=== PATIENT | male | born 1990 | race Caucasian/White ===

== ENCOUNTER → 2019-08-28 12:19 | Outpatient (CLI) | payer OTHER, SELFPAY ==
--- NOTE | 2019-08-28 12:44 | XR_ITS ---
PROCEDURE: XR CHEST PORTABLE CLINICAL HISTORY: COVID TESTING Cough and congestion COMPARISON: No exams were available for comparison FINDINGS: The cardiomediastinal silhouette and pulmonary vascularity are within normal limits. The lungs are clear without infiltrates, suspicious nodules, or pleural effusions. No acute bony abnormalities. IMPRESSION: No acute findings. Dictated by: Jase Zamora MD 08/28/2019 13:38 Electronically signed by Jase Zamora MD in [facility] 08/28/2019 13:38
[2019-08-28 13:43] LABS: Adenovirus,PCR Not Detected (NotDetected); Bordetella Pertussis Not Detected (NotDetected); Chlamydophila Pneumoniae, PCR Not Detected (NotDetected); Coronavirus 229E Not Detected (NotDetected); Coronavirus NL63 Not Detected (NotDetected); Coronavirus OC43 Not Detected (NotDetected); Coronovirus HKU1,PCR Not Detected (NotDetected); Human Metapneumovirus Not Detected (NotDetected); Influenza A, PCR Not Detected (NotDetected); Influenza AH1, 2009 Not Detected (NotDetected); Influenza AH1, PCR Not Detected (NotDetected); Influenza AH3,PCR Not Detected (NotDetected); Influenza B, PCR Not Detected (NotDetected); Mycoplasma Pneumoniae, PCR Not Detected (NotDetected); Parainfluenza 1, PCR Not Detected (NotDetected); Parainfluenza 2, PCR Not Detected (NotDetected); Parainfluenza 3, PCR Not Detected (NotDetected); Parainfluenza 4, PCR Not Detected (NotDetected); Respiratory Syncytial Virus Not Detected (NotDetected); Rhinovirus/Enterovirus Not Detected (NotDetected)
[2019-08-28 14:27] LABS: Basophils # 0.1 K/mm3 (0-0.2); Basophils % 0.7 % (0.1-2.0); Eosinophils # 0.3 K/mm3 (0.0-0.4); Eosinophils % 3.9 % (0.1-12.0); Hematocrit 47.6 % (42.0-52.0); Hemoglobin 16.4 g/dL (14.1-18.0); Lymphocytes # 2.4 K/mm3 (0.7-4.5); Lymphocytes % 27.9 % (10-50); Mean Corpuscular HGB Conc 34.5 g/dL (31.8-35.4); Mean Corpuscular Hemoglobin 32.3 pg (27.0-31.2); Mean Corpuscular Volume 93.6 fl (80-94); Mean Platelet Volume 7.5 fl (7.4-10.4); Monocytes # 0.6 K/mm3 (0.1-1.0); Neutrophils # 5.1 K/mm3 (1.8-7.8); Neutrophils % 60.4 % (37.0-80.0); Platelet Count 245 K/mm3 (142-424); Red Blood Count 5.09 M/mm3 (4.60-6.20); Red Cell Distribution Width 12.9 % (11.5-17.5); White Blood Count 8.5 K/mm3 (4.8-10.8)
[2019-08-28 15:17] LABS: Strep Scrn Group A (Rapid) Negative (Negative)
[2019-08-28 15:26] LABS: Coronavirus 19 IgG Antibody Negative (Negative); Coronavirus 19 IgM Antibody Negative (Negative)
[2019-08-29 14:41] LABS: Covid-19 Nasal PCR Sendout Lex NOT DETECTED
== END ==
PROVIDERS: PCP Family Medicine; Visit Provider Family Medicine
DX: Z01.818 Encounter for other preprocedural examination (principal)
CPT/HCPCS: 36415; 71045; 85025; 86328; 87430; 87486; 87581; 87633; 87798; U0004

== ENCOUNTER → 2020-01-21 10:55 | Outpatient (CLI) | payer BC, SELFPAY ==
--- NOTE | 2020-01-21 11:01 | US_ITS ---
PROCEDURE: US TESTICULAR CLINICAL INDICATION: LT EPIDIDYMITIS Pain COMPARISON: No exams were available for comparison FINDINGS: The right testicle is 4 x 2.3 x 3 cm. Left testicle is 4 x 2 x 4 cm. There is bilateral testicular blood flow. No mass or other significant anomaly. The epididymi have an unremarkable appearance. Imaging was performed along the proximal penile region showing no obvious abnormality. IMPRESSION: Unremarkable testicular ultrasound. Dictated by: Jase Zamora MD 01/21/2020 12:27 Jase Zamora MD in [facility] 01/21/2020 12:27
== END ==
PROVIDERS: PCP Family Medicine; Visit Provider Nurse Practitioner
DX: N45.1 Epididymitis (principal)
CPT/HCPCS: 76870

== ENCOUNTER → 2021-11-01 06:23 | Outpatient (CLI) | payer SELFPAY ==
[2021-11-01 18:33] LABS: Adenovirus,PCR Not Detected (NotDetected); Bordetella Pertussis Not Detected (NotDetected); Chlamydophila Pneumoniae, PCR Not Detected (NotDetected); Coronavirus 229E Not Detected (NotDetected); Coronavirus NL63 Not Detected (NotDetected); Coronavirus OC43 Not Detected (NotDetected); Coronovirus HKU1,PCR Not Detected (NotDetected); Human Metapneumovirus Not Detected (NotDetected); Influenza A, PCR Not Detected (NotDetected); Influenza AH1, 2009 Not Detected (NotDetected); Influenza AH1, PCR Not Detected (NotDetected); Influenza AH3,PCR Not Detected (NotDetected); Influenza B, PCR Not Detected (NotDetected); Mycoplasma Pneumoniae, PCR Not Detected (NotDetected); Parainfluenza 1, PCR Not Detected (NotDetected); Parainfluenza 2, PCR Not Detected (NotDetected); Parainfluenza 3, PCR Not Detected (NotDetected); Parainfluenza 4, PCR Not Detected (NotDetected); Respiratory Syncytial Virus Not Detected (NotDetected); Rhinovirus/Enterovirus Not Detected (NotDetected)
[2021-11-01 18:49] LABS: Basophils % 0.5 % (0.1-2.0); Eosinophils % 0.4 % (0.1-12.0); Hematocrit 52.7 % (42.0-52.0); Lymphocytes # 0.6 K/mm3 (0.7-4.5); Lymphocytes % 11.2 % (10-50); Mean Corpuscular HGB Conc 32.3 g/dL (31.8-35.4); Mean Corpuscular Hemoglobin 32.3 pg (27.0-31.2); Mean Corpuscular Volume 99.9 fl (80-94); Mean Platelet Volume 8.1 fl (7.4-10.4); Monocytes # 0.7 K/mm3 (0.1-1.0); Monocytes % 13.7 % (1.7-9.3); Neutrophils % 74.1 % (37.0-80.0); Platelet Count 227 K/mm3 (142-424); Red Blood Count 5.27 M/mm3 (4.60-6.20); Red Cell Distribution Width 13.1 % (11.5-17.5); White Blood Count 5.4 K/mm3 (4.8-10.8)
[2021-11-02 02:38] LABS: Coronavirus 19, PCR Detected (NotDetected)
== END ==
PROVIDERS: PCP Nurse Practitioner; Visit Provider Nurse Practitioner
DX: U07.1 COVID-19 (principal); R06.2 Wheezing; R51.9 Headache, unspecified; J02.9 Acute pharyngitis, unspecified; J06.9 Acute upper respiratory infection, unspecified
CPT/HCPCS: 85025; 87581; 87632; 87798; C9803; U0003; U0005

== ENCOUNTER → 2022-03-28 15:38 | Outpatient (CLI) | payer OTHER, SELFPAY ==
[2022-03-28 20:13] LABS: Alanine Aminotransferase 42 U/L (12-78); Albumin Level 4.6 g/dl (3.5-5.0); Albumin/Globulin Ratio 1.7 (1.1-1.8); Alkaline Phosphatase 82 U/L (38-126); Anion Gap 13.2 mEq/L (5-15); Aspartate Amino Transferase 35 U/L (17-59); Bilirubin,Total 0.8 mg/dl (0.2-1.3); Blood Urea Nitrogen 9 mg/dl (9-20); Calcium 9.1 mg/dl (8.4-10.2); Carbon Dioxide 30 mmol/L (22.0-30.0); Chloride 102 mmol/L (98-107); Chol/HDL Ratio 1.8 (1-3.5); Cholesterol 131 mg/dl (140-200); Estimated Glomerular Filt Rate 88 ml/min (>60); GFR (African American) 106 ML/MIN (>60); Globulin 2.7 g/dL (1.3-3.2); Glucose 85 mg/dl (74-100); HDL Cholesterol 72 mg/dl (40-60); Potassium 4.2 mmoL/L (3.5-5.1); Sodium 141 mmol/L (136-145); Total Protein,Serum 7.3 g/dl (6.3-8.2); Triglycerides 81 mg/dl (30-150); VLDL Cholesterol 16 mg/dL (0-40)
[2022-03-28 20:23] LABS: C-Reactive Protein 1.7 mg/L (0-4); Direct LDL Cholesterol 40.99 mg/dL (100-129)
[2022-03-28 20:25] LABS: 25-OH Vitamin D, Total 36.1 ng/mL (30-100)
[2022-03-28 20:36] LABS: Hemoglobin A1C 5.4 % (4.0-6.0)
[2022-03-28 20:53] LABS: Erythrocyte Sedimentation Rate 3 mm/hr (0-15)
[2022-03-28 20:56] LABS: Basophils # 0.1 K/mm3 (0-0.2); Basophils % 0.8 % (0.1-2.0); Eosinophils # 0.2 K/mm3 (0.0-0.4); Eosinophils % 3.7 % (0.1-12.0); Hemoglobin 16.5 g/dL (14.1-18.0); Lymphocytes % 30.6 % (10-50); Mean Corpuscular HGB Conc 33.7 g/dL (31.8-35.4); Mean Corpuscular Volume 91.9 fl (80-94); Mean Platelet Volume 8.9 fl (7.4-10.4); Monocytes # 0.6 K/mm3 (0.1-1.0); Monocytes % 8.6 % (1.7-9.3); Neutrophils # 3.7 K/mm3 (1.8-7.8); Neutrophils % 56.4 % (37.0-80.0); Platelet Count 367 K/mm3 (142-424); Red Blood Count 5.33 M/mm3 (4.60-6.20); Red Cell Distribution Width 12.8 % (11.5-17.5); White Blood Count 6.6 K/mm3 (4.8-10.8)
[2022-03-28 21:01] LABS: Vitamin B12 587 pg/mL (239-931)
[2022-03-30 14:32] LABS: HIV Screen 4th Generation wRfx Non Reactive (Non Reactive)
[2022-04-05 23:11] LABS: Hep A Ab, IgM NEGATIVE; Hepatitis B Core Antibody IgM NEGATIVE; Hepatitis B Surface Antigen NEGATIVE; Hepatitis C Antibody >11.0
== END ==
LOC: LAB.DROPOF 03-29 06:28
PROVIDERS: PCP Nurse Practitioner; Visit Provider Nurse Practitioner
DX: F19.11 Other psychoactive substance abuse, in remission (principal); R53.83 Other fatigue; Z80.7 Family history of other malignant neoplasms of lymphoid, hematopoietic and related tissues; Z86.19 Personal history of other infectious and parasitic diseases
CPT/HCPCS: 80053; 80061; 80074; 82306; 82607; 83036; 84443; 85025; 85651; 86140; 86703; G0432

== ENCOUNTER → 2022-03-29 16:50 | Outpatient (CLI) | payer OTHER, SELFPAY ==
--- NOTE | 2022-03-29 17:10 | XR_ITS ---
PROCEDURE INFORMATION: Exam: XR Chest Exam date and time: 03/29/2022 5:11 PM Age: 32 years old Clinical indication: Cough and shortness of breath; Additional info: Fatigue, family history non-hodgkin's lymphoma, patient stated he has felt bad for awhile, and he is a smoker, SOA TECHNIQUE: Imaging protocol: Radiologic exam of the chest. Views: 2 views. COMPARISON: CR XR CHEST PORTABLE 08/28/2019 1:03 PM FINDINGS: Lungs: No evidence of pneumonia or interstitial edema. Pleural spaces: Unremarkable. No pleural effusion. No pneumothorax. Heart/Mediastinum: Unremarkable. No cardiomegaly. Bones/joints: Unremarkable. IMPRESSION: No evidence of pneumonia or interstitial edema.
== END ==
LOC: RAD 16:51
PROVIDERS: PCP Nurse Practitioner; Visit Provider Nurse Practitioner
DX: R53.83 Other fatigue (principal); Z80.7 Family history of other malignant neoplasms of lymphoid, hematopoietic and related tissues
CPT/HCPCS: 71046

== ENCOUNTER → 2023-03-06 14:44 | Outpatient (CLI) | payer BC, SELFPAY ==
[2023-03-06 15:33] LABS: Basophils # 0.1 K/mm3 (0-0.2); Basophils % 1.4 % (0.1-2.0); Eosinophils # 0.3 K/mm3 (0.0-0.4); Eosinophils % 5.3 % (0.1-12.0); Hematocrit 44.9 % (42.0-52.0); Hemoglobin 16.1 g/dL (14.1-18.0); Lymphocytes # 2.1 K/mm3 (0.7-4.5); Lymphocytes % 32.3 % (10-50); Mean Corpuscular HGB Conc 35.9 g/dL (31.8-35.4); Mean Corpuscular Hemoglobin 32.2 pg (27.0-31.2); Mean Corpuscular Volume 89.6 fl (80-94); Mean Platelet Volume 7.7 fl (7.4-10.4); Monocytes # 0.6 K/mm3 (0.1-1.0); Monocytes % 9.1 % (1.7-9.3); Neutrophils # 3.4 K/mm3 (1.8-7.8); Neutrophils % 51.9 % (37.0-80.0); Platelet Count 259 K/mm3 (142-424); Red Blood Count 5.01 M/mm3 (4.60-6.20); Red Cell Distribution Width 12.4 % (11.5-17.5); White Blood Count 6.5 K/mm3 (4.8-10.8)
[2023-03-06 16:34] LABS: Alanine Aminotransferase 60 U/L (12-78); Albumin Level 4.2 g/dl (3.5-5.0); Albumin/Globulin Ratio 1.5 (1.1-1.8); Alkaline Phosphatase 72 U/L (38-126); Anion Gap 7.6 mEq/L (5-15); Aspartate Amino Transferase 51 U/L (17-59); Bilirubin,Direct 0.1 mg/dl (0.0-0.4); Bilirubin,Indirect 0.8 mg/dL (0.0-0.9); Bilirubin,Total 0.9 mg/dl (0.2-1.3); Bilirubin,Unconjugated 0.8 mg/dL (0.0-1.1); Blood Urea Nitrogen 9 mg/dl (9-20); Calcium 8.7 mg/dl (8.4-10.2); Carbon Dioxide 31 mmol/L (22.0-30.0); Chloride 102 mmol/L (98-107); Estimated Glomerular Filt Rate 98 ml/min (>60); GFR (African American) 119 ML/MIN (>60); Globulin 2.8 g/dL (1.3-3.2); Glucose 93 mg/dl (74-100); Potassium 4.6 mmoL/L (3.5-5.1); Sodium 136 mmol/L (136-145)
[2023-03-08 12:50] LABS: Hepatitis Be Antibody Negative (Negative)
[2023-03-11 22:45] LABS: HIV Screen 4th Generation wRfx Non Reactive
[2023-03-11 22:46] LABS: Hepatitis C Antibody Reactive
== END ==
PROVIDERS: PCP Nurse Practitioner; Visit Provider Nurse Practitioner Family
DX: F11.20 Opioid dependence, uncomplicated (principal)
CPT/HCPCS: 36415; 80053; 80076; 85025; 86703; 86707; 87380; G0432

== ENCOUNTER 2023-05-08 19:58 | Outpatient (CLI) | payer BC, SELFPAY ==
[2023-05-08 18:26] LABS: Basophils % 0.4 % (0.1-2.0); Eosinophils # 0.3 K/mm3 (0.0-0.4); Eosinophils % 4.1 % (0.1-12.0); Hematocrit 44.4 % (42.0-52.0); Hemoglobin 15.9 g/dL (14.1-18.0); Lymphocytes # 2.1 K/mm3 (0.7-4.5); Lymphocytes % 32.6 % (10-50); Mean Corpuscular HGB Conc 35.7 g/dL (31.8-35.4); Mean Corpuscular Hemoglobin 32.1 pg (27.0-31.2); Mean Corpuscular Volume 89.9 fl (80-94); Mean Platelet Volume 8.4 fl (7.4-10.4); Monocytes # 0.5 K/mm3 (0.1-1.0); Monocytes % 7.8 % (1.7-9.3); Neutrophils # 3.5 K/mm3 (1.8-7.8); Neutrophils % 55.2 % (37.0-80.0); Platelet Count 243 K/mm3 (142-424); Red Blood Count 4.94 M/mm3 (4.60-6.20); White Blood Count 6.4 K/mm3 (4.8-10.8)
[2023-05-08 18:40] LABS: Chloride 101 mmol/L (98-107); Sodium 136 mmol/L (136-145)
[2023-05-08 18:41] LABS: Potassium 4.6 mmoL/L (3.5-5.1)
[2023-05-08 18:43] LABS: Alanine Aminotransferase 69 U/L (12-78); Albumin Level 4.5 g/dl (3.5-5.0); Albumin/Globulin Ratio 1.7 (1.1-1.8); Alkaline Phosphatase 73 U/L (38-126); Anion Gap 7.6 mEq/L (5-15); Aspartate Amino Transferase 54 U/L (17-59); Bilirubin,Total 1.2 mg/dl (0.2-1.3); Blood Urea Nitrogen 18 mg/dl (9-20); Carbon Dioxide 32 mmol/L (22.0-30.0); Estimated Glomerular Filt Rate 113 ml/min (>60); GFR (African American) 136 ML/MIN (>60); Globulin 2.7 g/dL (1.3-3.2); Total Protein,Serum 7.2 g/dl (6.3-8.2)
[2023-05-08 18:44] LABS: Calcium 9.4 mg/dl (8.4-10.2); Chol/HDL Ratio 1.9 (1-3.5); Cholesterol 167 mg/dl (140-200); Glucose 88 mg/dl (74-100); HDL Cholesterol 89 mg/dl (40-60); Triglycerides 79 mg/dl (30-150); VLDL Cholesterol 16 mg/dL (0-40)
[2023-05-08 19:02] LABS: Direct LDL Cholesterol 47.26 mg/dL (100-129)
[2023-05-08 19:16] LABS: Thyroid Stimulating Hormone 0.94 uIU/mL (0.465-4.68)
[2023-05-08 19:41] LABS: Hemoglobin A1C 5.1 % (4.0-6.0)
== END 2023-05-08 23:59 ==
LOC: LAB.DROPOF 19:58
PROVIDERS: PCP Nurse Practitioner; Visit Provider Nurse Practitioner
DX: R07.89 Other chest pain (principal); I10 Essential (primary) hypertension; D48.62 Neoplasm of uncertain behavior of left breast; L03.122 Acute lymphangitis of left axilla; Z80.7 Family history of other malignant neoplasms of lymphoid, hematopoietic and related tissues; Z79.899 Other long term (current) drug therapy
CPT/HCPCS: 80053; 80061; 83036; 84443; 85025

== ENCOUNTER 2023-05-17 14:27 | Outpatient (CLI) | payer BC, SELFPAY ==
--- NOTE | 2023-05-17 14:28 | US_ITS ---
PROCEDURE INFORMATION: Exam: US Left Breast, Complete MG Left Diagnostic Breast Tomosynthesis Exam date and time: 05/17/2023 2:20 PM Age: 33 years old Clinical indication: Left breast pain; Left breast thickening TECHNIQUE: Imaging protocol: Complete ultrasound of all four quadrants of the left breast and the retroareolar regions, including ultrasound of the axilla when performed. Left Diagnostic tomosynthesis and 2D mammography including computer-aided detection (CAD) when performed. Unilateral or bilateral exam. COMPARISON: No relevant prior studies available. FINDINGS: MAMMOGRAPHY: The breast is entirely fatty. There is no breast tissue . There is no stellate mass, architectural distortion or suspicious microcalcifications to suggest malignancy. No skin thickening or axillary adenopathy. ULTRASOUND: Sonographic images of the left breast including the retroareolar region, all 4 quadrants and the axilla do not demonstrate any solid or cystic masses. No architectural distortion or acoustical shadowing. No skin thickening or axillary adenopathy. IMPRESSION: No mammographic or sonographic evidence of malignancy. No significant breast tissue is identified. Further evaluation of a palpable abnormality should be based on clinical grounds regardless of radiographic findings or lack thereof. ASSESSMENT: BI-RADS Category 1: Negative
--- NOTE | 2023-05-17 14:43 | XR_ITS ---
FINAL REPORT TECHNIQUE: Chest PA & Lateral CLINICAL HISTORY: left breast neoplasm with axillary lymphadenopathy COMPARISON: 03/29/2022 FINDINGS: 2 views of the chest were performed. The heart size is normal. The mediastinum is within normal limits. There is no acute cardiopulmonary process. There are no pleural effusions. There is no pneumothorax. The bony thorax appears intact. IMPRESSION: No acute cardiopulmonary process. Reviewed, Interpreted and Dictated by Mani Osborne MD Transcribed by Lenore Looney Authenticated and [facility]
== END 2023-05-17 23:59 ==
LOC: RAD 14:28
PROVIDERS: PCP Nurse Practitioner; Visit Provider Nurse Practitioner
DX: D48.62 Neoplasm of uncertain behavior of left breast (principal); L03.122 Acute lymphangitis of left axilla; Z80.7 Family history of other malignant neoplasms of lymphoid, hematopoietic and related tissues
CPT/HCPCS: 71046; 76641; 77061; 77065; G0279

== ENCOUNTER 2023-06-14 11:40 | Outpatient (CLI) | payer BC, SELFPAY ==
[2023-06-18 16:16] LABS: HCV Ab Reactive (Non Reactive)
[2023-06-20 08:23] LABS: Hepatitis C Antibody Reactive
== END 2023-06-14 23:59 ==
PROVIDERS: PCP Nurse Practitioner; Visit Provider Nurse Practitioner
DX: B19.20 Unspecified viral hepatitis C without hepatic coma (principal)
CPT/HCPCS: 36415; 87380; 87522

== ENCOUNTER 2023-06-26 09:04 | Outpatient (CLI) | payer BC, SELFPAY ==
--- NOTE | 2023-06-26 09:09 | US_ITS ---
FINAL REPORT CLINICAL HISTORY: eval liver FINDINGS: Sonographic images of the right upper quadrant were obtained. The pancreas is partially obscured.The liver has an unremarkable appearance.The gallbladder appears normal without evidence of gallstones.There is no evidence of biliary ductal dilatation.The common duct measures 2 mm. Limited images of the right kidney are unremarkable. IMPRESSION: Unremarkable right upper quadrant ultrasound. Authenticated and ERN
== END 2023-06-26 23:59 ==
LOC: RAD 09:05
PROVIDERS: PCP Nurse Practitioner; Visit Provider Nurse Practitioner
DX: B19.20 Unspecified viral hepatitis C without hepatic coma (principal)
CPT/HCPCS: 76705

== ENCOUNTER 2023-07-06 15:48 | Outpatient (CLI) | payer BC, SELFPAY ==
[2023-07-06 17:02] LABS: Alanine Aminotransferase 55 U/L (12-78); Albumin Level 4.7 g/dl (3.5-5.0); Albumin/Globulin Ratio 1.9 (1.1-1.8); Alkaline Phosphatase 68 U/L (38-126); Anion Gap 10.7 mEq/L (5-15); Aspartate Amino Transferase 48 U/L (17-59); Blood Urea Nitrogen 16 mg/dl (9-20); Calcium 9.7 mg/dl (8.4-10.2); Carbon Dioxide 32 mmol/L (22.0-30.0); Chloride 99 mmol/L (98-107); Estimated Glomerular Filt Rate 113 ml/min (>60); GFR (African American) 136 ML/MIN (>60); Globulin 2.5 g/dL (1.3-3.2); Glucose 98 mg/dl (74-100); Potassium 4.7 mmoL/L (3.5-5.1); Sodium 137 mmol/L (136-145); Total Protein,Serum 7.2 g/dl (6.3-8.2)
[2023-07-11 22:55] LABS: HCV Genotype Charge YES; Hepatitis C Genotype 1a (.)
== END 2023-07-06 23:59 | disposition home or self-care (01) ==
PROVIDERS: PCP Nurse Practitioner; Visit Provider Nurse Practitioner
DX: B19.20 Unspecified viral hepatitis C without hepatic coma (principal); R10.9 Unspecified abdominal pain
CPT/HCPCS: 36415; 80053; 81596; 87522; 87902

== ENCOUNTER 2023-07-19 14:26 | Outpatient (CLI) | payer BC, SELFPAY ==
[2023-07-19 18:13] LABS: Coronavirus 19, PCR Not Detected (NotDetected); Influenza A, PCR Not Detected (NotDetected); Influenza B, PCR Not Detected (NotDetected)
== END 2023-07-19 23:59 | disposition home or self-care (01) ==
LOC: LAB.DROPOF 07-20 14:27
PROVIDERS: PCP Nurse Practitioner; Visit Provider Nurse Practitioner
DX: R51.9 Headache, unspecified (principal); R05.9 Cough, unspecified; R09.81 Nasal congestion
CPT/HCPCS: 87636

== ENCOUNTER 2023-08-07 16:27 | Outpatient (CLI) | payer BC, SELFPAY | END 2023-08-07 23:59 | disposition home or self-care (01) | LOC: LAB 16:31 | PROVIDERS: PCP Nurse Practitioner; Visit Provider Nurse Practitioner | DX: I10 Essential (primary) hypertension (principal) ==

== ENCOUNTER 2023-10-02 16:39 | Outpatient (CLI) | payer BC, SELFPAY ==
[2023-10-02 17:56] LABS: Alanine Aminotransferase 27 U/L (12-78); Albumin Level 4.6 g/dl (3.5-5.0); Albumin/Globulin Ratio 1.7 (1.1-1.8); Alkaline Phosphatase 67 U/L (38-126); Anion Gap 9.9 mEq/L (5-15); Aspartate Amino Transferase 27 U/L (17-59); Bilirubin,Total 0.9 mg/dl (0.2-1.3); Blood Urea Nitrogen 18 mg/dl (9-20); Calcium 9.6 mg/dl (8.4-10.2); Carbon Dioxide 29 mmol/L (22.0-30.0); Chloride 99 mmol/L (98-107); Estimated Glomerular Filt Rate 87 ml/min (>60); GFR (African American) 105 ML/MIN (>60); Globulin 2.7 g/dL (1.3-3.2); Glucose 127 mg/dl (74-100); Potassium 3.9 mmoL/L (3.5-5.1); Sodium 134 mmol/L (136-145); Total Protein,Serum 7.3 g/dl (6.3-8.2)
[2023-10-04 08:19] LABS: AFP, Tumor Marker <1.8 ng/mL (0.0-6.9)
== END 2023-10-02 23:59 | disposition home or self-care (01) ==
LOC: LAB 16:42
PROVIDERS: PCP Nurse Practitioner; Visit Provider Nurse Practitioner
DX: B19.20 Unspecified viral hepatitis C without hepatic coma (principal); R10.9 Unspecified abdominal pain
CPT/HCPCS: 36415; 80053; 82105; 87522

== ENCOUNTER 2024-01-02 16:20 | Outpatient (CLI) | payer BC, SELFPAY ==
[2024-01-02 17:31] LABS: Alanine Aminotransferase 17 U/L (12-78); Albumin Level 4.8 g/dl (3.5-5.0); Alkaline Phosphatase 62 U/L (38-126); Aspartate Amino Transferase 29 U/L (17-59); Bilirubin,Direct 0.1 mg/dl (0.0-0.4); Bilirubin,Total 1.1 mg/dl (0.2-1.3); Total Protein,Serum 7.3 g/dl (6.3-8.2)
== END 2024-01-02 23:59 | disposition home or self-care (01) ==
LOC: LAB 16:20
PROVIDERS: PCP Nurse Practitioner; Visit Provider Nurse Practitioner
DX: B19.20 Unspecified viral hepatitis C without hepatic coma (principal)
CPT/HCPCS: 36415; 80076; 87522

== ENCOUNTER 2024-03-17 19:53 | Outpatient (CLI) | payer BC, SELFPAY ==
[2024-03-17 18:58] LABS: Hematocrit 42.3 % (42.0-52.0); Hemoglobin 14.5 g/dL (14.1-18.0); Mean Corpuscular HGB Conc 34.3 g/dL (31.8-35.4); Mean Corpuscular Hemoglobin 30.3 pg (27.0-31.2); Mean Corpuscular Volume 88.5 fl (80-94); Red Blood Count 4.78 M/mm3 (4.60-6.20); White Blood Count 5.2 K/mm3 (4.8-10.8)
[2024-03-17 18:59] LABS: Basophils % 0.6 % (0.1-2.0); Eosinophils % 2.1 % (0.1-12.0); Lymphocytes % 30.3 % (10-50); Mean Platelet Volume 9.6 fl (7.4-10.4); Monocytes % 10.4 % (1.7-9.3); Neutrophils % 56.4 % (37.0-80.0); Platelet Count 293 K/mm3 (142-424)
[2024-03-17 19:00] LABS: Eosinophils # 0.1 K/mm3 (0.0-0.4); Lymphocytes # 1.6 K/mm3 (0.7-4.5); Monocytes # 0.5 K/mm3 (0.1-1.0); Neutrophils # 2.9 K/mm3 (1.8-7.8)
[2024-03-17 19:16] LABS: Alanine Aminotransferase 18 U/L (12-78); Albumin Level 4.5 g/dl (3.5-5.0); Alkaline Phosphatase 58 U/L (38-126); Anion Gap 10.7 mEq/L (5-15); Aspartate Amino Transferase 27 U/L (17-59); Bilirubin,Total 1.1 mg/dl (0.2-1.3); Blood Urea Nitrogen 14 mg/dl (9-20); Calcium 9.3 mg/dl (8.4-10.2); Carbon Dioxide 30 mmol/L (22.0-30.0); Chloride 101 mmol/L (98-107); Estimated Glomerular Filt Rate 87 ml/min (>60); GFR (African American) 105 ML/MIN (>60); Globulin 2.3 g/dL (1.3-3.2); Glucose 93 mg/dl (74-100); Potassium 4.7 mmoL/L (3.5-5.1); Sodium 137 mmol/L (136-145); Total Protein,Serum 6.8 g/dl (6.3-8.2)
[2024-03-17 20:45] LABS: Creatinine,Urine Random 116 mg/dL (Not Estab.)
[2024-03-17 20:51] LABS: Microalbumin < 6.000 mg/L (0-16.7)
== END 2024-03-17 23:59 | disposition home or self-care (01) ==
LOC: LAB 19:54
PROVIDERS: PCP Nurse Practitioner; Visit Provider Nurse Practitioner
DX: F10.20 Alcohol dependence, uncomplicated (principal); F11.20 Opioid dependence, uncomplicated; I10 Essential (primary) hypertension; F17.210 Nicotine dependence, cigarettes, uncomplicated
CPT/HCPCS: 80053; 82043; 82570; 85025

== ENCOUNTER 2024-12-17 10:41 | Outpatient (CLI) | payer OTHER, SELFPAY ==
[2024-12-17 15:58] LABS: Hematocrit 46.3 % (42.0-52.0); Hemoglobin 15.8 g/dL (14.1-18.0); Immature Granulocytes % 0.4 %; Mean Corpuscular HGB Conc 34.1 g/dL (31.8-35.4); Mean Corpuscular Hemoglobin 31.5 pg (27.0-31.2); Mean Corpuscular Volume 92.4 fl (80-94); Nucleated Red Blood Cells % 0 %; Platelet Count 291 K/mm3 (142-424); Red Blood Count 5.01 M/mm3 (4.60-6.20); Red Cell Distribution Width-SD 41.1 fL; White Blood Count 9.6 K/mm3 (4.8-10.8)
[2024-12-17 17:06] LABS: Albumin Level 4.6 g/dl (3.5-5.0); Chloride 100 mmol/L (98-107); Potassium 4.6 mmoL/L (3.5-5.1); Sodium 137 mmol/L (136-145)
[2024-12-17 17:09] LABS: Alanine Aminotransferase 14 U/L (12-78); Albumin/Globulin Ratio 1.8 (1.1-1.8); Alkaline Phosphatase 82 U/L (38-126); Anion Gap 12.6 mEq/L (5-15); Aspartate Amino Transferase 25 U/L (17-59); Bilirubin,Total 1.3 mg/dl (0.2-1.3); Blood Urea Nitrogen 13 mg/dl (9-20); Calcium 10.0 mg/dl (8.4-10.2); Carbon Dioxide 29 mmol/L (22.0-30.0); Creatinine,Serum 0.90 mg/dl (0.66-1.25); Estimated Glomerular Filt Rate 98 ml/min (>60); GFR (African American) 118 ML/MIN (>60); Globulin 2.5 g/dL (1.3-3.2); Glucose 108 mg/dl (74-100); Total Protein,Serum 7.1 g/dl (6.3-8.2)
[2024-12-17 17:36] LABS: Thyroid Stimulating Hormone 0.71 uIU/mL (0.465-4.68)
--- OUTSIDE RECORDS SUMMARY | 2024-12-19 10:43 | XMS_ITS | Clinical Summary ---
Author Organization [facility] Address [address] [place] [id number] Phone Care Team Providers Care Industrial Rehabilitation Consultant Name Role Phone [facility] Unavailable Unavailable Conditions or Problems Problem Name Problem Code Onset Date Status Entry Date Provider Comment Standard Description Annotate Hepatitis C 49932136 (SNOMED CT) 06/09 Active 06/09 Alisson Yeager MA Viral hepatitis C Hepatitis C exposure 388009750 (SNOMED CT) 06/03 Resolved 06/03 Alisson Yeager MA Exposure to Hepatitis C virus Fatigue 00255646 (SNOMED CT) 06/03 Active 06/03 Adilene Garza MD Fatigue Hx of heroine abuse 988563990681586 (SNOMED CT) 06/03 Active 06/03 Adilene Garza MD History of heroin abuse Hepatitis C exposure 408610211 (SNOMED CT) 06/03 Removed 06/03 Adilene Garza MD Exposure to Hepatitis C virus Medications Medication Instructions Start Date Stop Date Generic Name NDC Provider Observed no known medication s at Medications Administered No information available. Allergies, Adverse Reactions, Alerts Observed no known allergies at Results Date Name Value Unit Range Flag Description Lab Report: COMPREHENSIVE ME TABOLIC PANEL, CBC (INCLUDES DIFF/PLT), HCV ... BASO % MANU 0.6 % N basophils as percent of blood leukocytes, manual count EOS % MANU 2.4 % N eosinophil s as percent of blood leukocytes, manual count MONOCYTE % 11.1 % N Monocytes/ 100 leukocytes in Blood by Automated count LYMPH% P BLD 30.2 % N lymphocy elsie as percent of blood leukocytes PMN % 55.7 % N Neutrophils/1 00 leukocytes in Blood by Automated count ABS BASOS 40 {Cells}/ uL 0-200 N Basophils [#/volume] in Blood ABS EOS 158 {Cells}/ uL 15-500 N Eosinophils [#/volume] in Blood ABS MONOS 733 {Cells}/ uL 200-950 N Monocytes [#/volume] in Blood ABSLYMPHCT 1993 {Cells}/ uL 850-3900 N Lymphocytes [#/volume] in Blood ABS NEUTROPH 3676 CELLS/UL 10*3/uL 6060-5095 N Neutrophils [#/volume] in Blood MPV 8.3 fL 7.5-11.5 N Platelet ron n volume [Entitic volume] in Blood by Joann PLATELETK/UL 252 THOUSAND/UL 10*3/uL 140-400 N platelet count RDW 14.1 % 11.0-15.0 N Erythrocyte distribution width [Ratio] by Automated count OL-MCHC 34.3 g/dL 32.0-36.0 N mean corpus cular hemoglobin concentration, rbc MCH 30.0 pg 27.0-33.0 N MCH [Entiti c mass] by Automated count MCV 87.4 fL 80.0-100. 0 N MCV [Entitic volume] by Automated count HCT 47.1 % 38.5-50.0 N Hematocrit [Volume Fraction] of Blood by Automated count HGB 16.2 g/dL 13.2-17.1 N Hemoglobin [Mass/volume] in Blood RBC M/UL 5.39 MILLION/UL 10*6/uL 4.20-5.80 N red blood count WBC CT BLOOD 6.6 10*3/uL 3.8-10.8 N leukocy te count, blood SGPT (ALT) 50 U/L 9-46 H Alanine aminotransferase [Enzymatic activity/volume] in Serum or Plasma SGOT (AST) 43 U/L 10-40 H Aspartate aminotransferase [Enzymatic activity/volume] in Serum or Plasma ALK PHOS 77 U/L 40-115 N Alkaline phosphatase [Enzymatic activity/volume] in Blood BILI TOTAL 1.2 mg/dL 0.2-1.2 N Bilirubin. total [Mass/volume] in Serum or Plasma A/G RATIO 2.0 (calc) 1.0-2.5 N Albumin/ Globulin [Mass Ratio] in Serum or Plasma GLOBULIN TOT 2.4 G/DL (CALC) g/dL 1.9-3.7 N Globulin [Mass/volume] in Serum ALBUMIN EOP 4.8 g/dL 3.6-5.1 N Albumin [Mass/volume] in Serum or Plasma by Electrophoresis PROTEIN, TOT 7.2 g/dL 6.1-8.1 N Protein [Mass/volume] in Serum or Plasma CALCIUM 9.8 mg/dL 8.6-10.3 N Calcium [Moles/volume] in Serum or Plasma CO2 28 mmol/L 19-30 N Carbon dioxid e, total [Moles/volume] in Venous blood CHLORIDE BLD 104 mmol/L 98-110 N chloride , blood POTASSIUM 4.0 mmol/L 3.5-5.3 N Potassium [Moles/volume] in Serum or Plasma SODIUM 141 mmol/L 135-146 N Sodium [Moles/volume] in Serum or Plasma BUN/CREAT NOT APPLICABLE (calc) 6-22 Urea nitrogen/Creatinine [Mass Ratio] in Serum or Plasma EGFR IF AFA 117 mL/min/1 .73m2 >OR = 60 N Glomerular filtration rate/1.73 sq M.predicted among blacks [Volume Rate/Area] in Serum, Plasma or Blood by Creatinine-based formula (MDRD) EGFR 101 mL/min/1 .73m2 >OR = 60 N Glomerular filtration rate/1.73 sq M.predicted [Volume Rate/Area] in Serum, Plasma or Blood by Creatinine-based formula (MDRD) CREATININE 1.04 mg/dL 0.60-1.35 N Creatini ne [Mass/volume] in Serum or Plasma BUN 14 mg/dL 7-25 N Urea nitrogen [Mass/volume] in Serum or Plasma GLUCOSE SER 96 mg/dL 65-99 N Glucose [Mass/volume] in Serum or Plasma Plan of Care Type Date Detail Referral Gastroenterology Referral [facility], [address], [place], [address] Referral Gastroenterology Referral [facility], [address], [place], [address] Referral excluded fr om report: Pending order CBC with diff Pending order CMP Pending order Other Pending order Medication Recon ciliation Procedures Code Procedure Name Date Entry Date [id number] Medication Reconciliation [facility] # CBC with diff 1 [id number] [facility] # CMP 1 Other [facility] Other [facility] Referral [facility] Vital Signs Date Name Value Unit Description BMI (Body Mass Index) 24.19 kg/m2 Bod y Mass Index (Ratio) Body Temperature 98.1 [degF] temperat ure E&M Body Temperature 36.72 Jacqueline temperat ure in centigrade E&M BP Diastolic 101 mm[Hg] blood pressu re, diastolic BP Systolic 161 mm[Hg] blood pressur e, systolic BSA (Body Surface Area) 1.94 b attila surface area Heart Rate 76 /min pulse rate Height 177.8 cm height in cent imeters E&M Height 70 [in_us] height E&M Weight Measured 168 [lb_av] weight E& M Weight Measured 168 [lb_av] weight E& M Weight Measured 76.36 kg weight in kilograms E&M Immunizations No information available. Advance Directives No information available.
--- OUTSIDE RECORDS SUMMARY | 2024-12-19 10:44 | XMS_ITS | Clinical Summary ---
Author Organization [facility] Address [address] [place] [address] Care Team Providers Care Feed Blender Name Role Phone Pcp, No Primary Care Provider [phone] Source Comments This information has been disclosed to you from confidential records protectedfrom disclosure by state law. You shall make no further disclosure of thisinformation without the specific, written, and informed release of theindividual to whom it pertains, or as otherwise permitted by law. A generalauthorization for the release of medical or other information is not sufficientfor the purposes of therelease of HIV test results or diagnoses. [id number] Allergies No known active allergies Medications No known medications Active Problems Problem Noted Date Diagnosed Date Benign neoplasm of skin 03/30/2008 Overview (12/24/2014): ICD-10 Transition Other acne 03/30/2008 Immunizations Immunization Administration Dates Next Due tdap 06/01/2019 Social History Tobacco Use Types Packs/Day Years Used Date Smoking Tobacco: Every Day Cigarettes Smokeless Tobacco: Never Alcohol Use Standard Drinks/Week Comments Not Currently 0 (1 standard drink = 0.6 oz pur e alcohol) Sex and Gender Information Value Date Recorded Sex Assigned at Not on file Legal Sex Male 11:45 PM EST Gender Identity Not on file Sexual Orientation Not on file Last Filed Vital Signs Vital Sign Reading Time Taken Comments Blood Pressure 133/60 06/02/2019 3:16 AM EDT Pulse 88 06/02/2019 3:16 AM EDT Temperature 36.8 C (98.3 F) 06/01/2019 10:28 PM EDT Respiratory Rate 19 06/02/2019 3:16 AM EDT Oxygen Saturation 98% 06/02/2019 3:16 AM EDT Inhaled Oxygen Concentration 98% 06/02/2019 3 :16 AM EDT Weight 77.1 kg (170 lb) 06/02/2019 12:40 AM EDT Height 177.8 cm (5' 10 ) 06/02/2019 12:40 AM EDT Body Mass Index 24.39 06/02/2019 12:40 AM EDT Plan of Treatment Not on file Care Teams Feed Blender Relationship Specialty Start Date End Date Pcp, No No Address PCP - General 06/01/19
--- OUTSIDE RECORDS SUMMARY | 2024-12-19 10:44 | XMS_ITS | Clinical Summary ---
Author Organization [facility] Address [address] [place] [id number] Care Team Providers Care Precision Lens Centerer And Edger Name Role Phone Joseph Hernandez MD Primary Care Provider [phone] Allergies No known active allergies Medications No known medications Social History Tobacco Use Types Packs/Day Years Used Date Smoking Tobacco: Every Day Cigarettes Alcohol Use Standard Drinks/Week Comments Yes 0 (1 standard drink = 0.6 oz pur e alcohol) Abuse Screen Answer Date Recorded Unsafe at Home or Work/School Not on file Feels Threatened by Someone? Not on file 02/2023 Does Anyone Keep You from Co ntacting Others or Doint Things Outside the Home? Not on file 01/04/2023 Physical Sign of Abuse Present Not on file 1 Housing Stability Answer Date Recorded Current Living Arrangements Not on file 12/24 Potentially Unsafe Housing Conditions Not on negro e 01/04/2023 Family and Community Support Answer Mushtaq e Recorded Help with Day-to-Day Activities Not on file 01/04/2023 Lonely or Isolated Not on file 01/04/2023 Employment Answer Date Recorded Do you want help finding or keeping work or a aki b? Not on file 01/04/2023 Disabilities Answer Date Recorded Concentrating, Remembering, or Making Decisions Difficulty Not on file 01/04/2023 Doing Errands Independently Difficulty Not on fi le 01/04/2023 Education Answer Date Recorded Help with school or training? Not on file Preferred Language Not on file 01/04/2023 Sex and Gender Information Value Date Recorded Sex Assigned at Not on file Legal Sex Male 12:34 PM EDT Gender Identity Not on file Sexual Orientation Not on file Last Filed Vital Signs Vital Sign Reading Time Taken Comments Blood Pressure 128/86 10/09/2018 4:21 PM EDT Pulse 55 10/09/2018 4:21 PM EDT Temperature 37.4 C (99.3 F) 10/09/2018 12:36 PM EDT Respiratory Rate 14 10/09/2018 12:36 PM EDT Oxygen Saturation 100% 10/09/2018 4:21 PM EDT Inhaled Oxygen Concentration - - Weight 74.8 kg (165 lb) 10/09/2018 12:36 PM EDT Height 177.8 cm (5' 10 ) 10/09/2018 12:36 PM EDT Body Mass Index 23.68 10/09/2018 12:36 PM EDT Plan of Treatment Health Maintenance Due Date Last Done Comments TDAP/TD VACCINES (1 - Tdap) 01/16/2011 ANNUAL PHYSICAL 10/11/2018 HEPATITIS C SCREENING 10/11/2018 INFLUENZA VACCINE 10/24/2024 Pneumococcal Vaccine 0-49 Aged Out No longer eligible based on patient's age to complete this topic Care Teams [facility] Lens Centerer And Edger Relationship Specialty Start Date End Date Joseph Hernandez MD [address] [facility] [address] [place] [address] PCP - General Family Medicine 10/09/18
--- OUTSIDE RECORDS SUMMARY | 2024-12-19 10:44 | XMS_ITS | Clinical Summary ---
Author Organization [facility] Address [address] [place] [id number] Care Team Providers Care Folder Machine Name Role Phone Unavailable Primary Care Provider Unavailabl e Source Comments [facility] is fully rolled out with thefollowing exceptions:General Clinical Research [facility] Social History Tobacco Use Types Packs/Day Years Used Date Smoking Tobacco: Never Assessed Sex and Gender Information Value Date Recorded Sex Assigned at Not on file Legal Sex Male 5:12 AM EST Gender Identity Not on file Sexual Orientation Not on file Plan of Treatment Health Maintenance Due Date Last Done Comments MMR IMMUNIZATION (1 of 1 - S tandard series) 01/16/1993 DTAP/Tdap/Td IMMUNIZATION (1 - Tdap) 01/16/1999 VARICELLA IMMUNIZATION (1 of 2 - 13+ 2-dose series) 01/16/2005 HEPATITIS B IMMUNIZATION (1 of 3 - 19+ 3-dose series) 01/16/2011 HPV IMMUNIZATION (1 - 3-dose SCDM series) 01/16/2019 AMB SEASONAL FLU VACCINE (#1) 11/24/2024 COVID-19 Vaccine ( - 2023-2 5 season) 2024 HIB IMMUNIZATION Aged Out No longer e ligible based on patient's age to complete this topic IPV IMMUNIZATION Aged Out No longer e ligible based on patient's age to complete this topic MCV4 IMMUNIZATION Aged Out No longer eligible based on patient's age to complete this topic MENINGOCOCCAL B VACCINE Aged Out No l onger eligible based on patient's age to complete this topic PNEUMOCOCCAL IMMUNIZATION Aged Out No longer eligible based on patient's age to complete this topic Respiratory Syncytial Virus (RSV) <20mo Aged Out No longer eligible b ased on patient's age to complete this topic
--- OUTSIDE RECORDS SUMMARY | 2024-12-19 10:44 | XMS_ITS | Clinical Summary ---
Author Organization [facility] Address [address] [place] [address] Care Team Providers Care Support Team Assoc Name Role Phone Unavailable Primary Care Provider Unavailabl e Allergies No known active allergies Medications Naltrexone Microspheres (VIVITROL) 380 mg IM SSRR 380 mg by Intramuscular route every 28 days. 1 Each 0 06/08/19 13 Active Family History Relation Name Status Comments Brother Alive Father Alive Mother Alive Social History Tobacco Use Types Packs/Day Years Used Date Smoking Tobacco: Former Smokeless Tobacco: Former Tobacco Cessation:Counseling Given: Yes Alcohol Use Standard Drinks/Week Comments No 0 (1 standard drink = 0.6 oz pur e alcohol) [facility] Sex and Gender Information Value Date Recorded Sex Assigned at Not on file Legal Sex Male 1:29 PM EST Gender Identity Not on file Sexual Orientation Not on file Last Filed Vital Signs Vital Sign Reading Time Taken Comments Blood Pressure 142/82 06/07/2012 5:17 PM EDT Pulse 82 06/07/2012 5:17 PM EDT Temperature - - Respiratory Rate - - Oxygen Saturation 95% 06/07/2012 5:17 PM EDT Inhaled Oxygen Concentration - - Weight 69.8 kg (153 lb 12.8 oz) 06/07/2012 5:17 PM EDT Height 177.8 cm (5' 10 ) 06/07/2012 5:17 PM EDT Body Mass Index 22.07 06/07/2012 5:17 PM EDT Plan of Treatment Health Maintenance Due Date Last Done Comments Tetanus Vaccination (Every 10 Years) 01/16/2010 Lipid Screening 2012 HPV Vaccine (1 - 3-dose SCDM series) 01/16/2019 Depression Screening 03/26/2024 COVID-19 Vaccine ( season) 2024 Influenza Vaccination (#1) 2024 Insurance [employer]THE[employer] Member Subscriber Plan / Payer (Ef fective for All Dates) Name:Ravi Hammonds Relation to Subscriber:Child Name:SUDHAKARBIRDIE Date of :1964 (Home) Address: [address] [place] [address] Payer ID:[id number] (NAIC) Group ID:Not on file Type:PPO Address: [address] [place] [id number]
== END 2024-12-17 23:59 ==
LOC: LAB.DROPOF 12-19 10:42
PROVIDERS: PCP Nurse Practitioner; Visit Provider Nurse Practitioner
DX: I10 Essential (primary) hypertension (principal)
CPT/HCPCS: 80053; 82043; 82570; 84443; 85025